=== PATIENT | female | born 1985 | race Caucasian/White ===

== ENCOUNTER 2023-04-23 02:58 | Emergency (ER) | payer OTHER, SELFPAY ==
[2023-04-23 03:06] VITALS: BP 105/63; PULSE 66; RESP 18; TEMP 36.3; O2SAT 97; BMI 25.4
--- NOTE | 2023-04-23 03:52 | ED.WOUNDLAC ---
HPI - Wound/Laceration General Chief Complaint: Wound/Laceration Stated Complaint: Lac on finger Time Seen by Provider: 04/23/23 03:29 Source: patient Mode of arrival: ambulatory Limitations: no limitations History of Present Illness HPI narrative: Patient was cutting oranges and sliced her left hand 4th digit. She is up to date with her tetanous. Onset (ago): hour(s) Related Data Allergies Allergy/AdvReac Type Severity Reaction Status Date / Time shellfish derived Allergy Hives Verified 04/23/23 03:09 Review of Systems Review of Systems: Yes all other systems are reviewed and are negative Neurologic: Denies Sensory deficit (Neuro) [facility] Social History Social History Advance Directives: No Advance Directives Information Provided: No Physical Exam Vital Signs: Vital Signs: Last Vital Signs Temp 97.3 F 04/23/23 03:06 Pulse 66 04/23/23 03:06 Resp 18 04/23/23 03:06 BP 105/63 04/23/23 03:06 Pulse Ox 97 04/23/23 03:06 O2 Del Method Room Air 04/23/23 03:06 BMI result Body Mass Index 25.4 Const: General: healthy appearing Nutritional Appearance: average body habitus Orientation/consciousness: oriented to person and patient oriented x3 Limitations: no limitations HEENT: Head: Yes normal to inspection Ears: external ears normal General nose exam: Normal external nose present Mouth: Normal oral and palatal mucosa present and oropharynx normal Throat: Yes posterior oropharynx normal Eyes: General: appearance normal, both eyes and all related structures Neck: Other: supple Neck: Yes normal visual inspection Chest: Chest palpation & inspection: normal inspection of the chest : General: Yes no CVA tenderness Back/Spine/Pelvis: Back: no CVA tenderness Skin: General skin exam: no rashes or lesions noted Neuro: General: oriented to person and patient oriented x3 Cranial nerves: Yes CN's II-XII intact bilaterally Motor exam (neuro): 5/5 motor strength present throughout Sensory Exam: No Sensory deficit (Neuro) Extrem: Other: left hand 4th digit pulp with 1cm laceration Psych: Appearance: grossly normal Course Reevaluation(s) Reevaluation #1: Procedure: dermabond to distal phalynx Time: 04:03 Medical Decision Making Differential Diagnosis Differential Diagnoses: The differential diagnosis associated with the presentation includes (finger laceration) Tests considered The following testing was considered but not selected: xray considered but patient with relatively superficial laceration Prescription Management I considered prescription management with: Antibiotic (wound is clean will not place on abx at this time) Discharge Plan Discharge Clinical Impression: Laceration Patient Disposition: Home, Self-Care Instructions: Skin Adhesive Care (ED) Referrals: Physician,Chandana J [Primary Care Provider] - 1 week
== END 2023-04-23 04:18 | disposition home or self-care (01) ==
PROVIDERS: Emergency Provider Emergency Medicine
DX: S61.215A Laceration without foreign body of left ring finger without damage to nail, initial encounter (principal); W26.0XXA Contact with knife, initial encounter; Y93.9 Activity, unspecified; Y92.9 Unspecified place or not applicable; Y99.9 Unspecified external cause status
CPT/HCPCS: 12001; 99282; 99284